=== PATIENT | male | born 1950 | race Caucasian/White ===

== ENCOUNTER 2018-09-04 18:04 | Observation (INO) ==
--- NOTE | 2018-09-04 19:12 | ED ---
HPI General Chief Complaint: Chest Pain Stated Complaint: Chest pain/SOB Time Seen by Provider: 09/04/18 18:40 Source: patient and RN notes reviewed Mode of arrival: ambulatory Limitations: no limitations History of Present Illness HPI narrative: 67-year-old male presents to the emergency department for evaluation of midsternal chest pain that started approximately 2-3 days ago. He states it is constant, but intermittently will get worse. He states it will radiate to his back into his throat. Patient states it is a pressure type of pain. He states that he was in a hospital in [place], [place] for chest pain in May. He states this pain is similar. He states he had a stress test, but does not know the results. 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 He does have history of hypertension, hyperlipidemia, COPD. Patient arrived here approximately 1 week ago from [place]. He denies any history DVT or PE. No leg edema. He states that if he walks, the pain will lessen. However, with sitting still or resting, he thinks the pain and it becomes worse. He states the pain is not worse with exertion. In fact, it actually improves with exertion. Moderate severity. MD complaint: Reports chest pain STEMI Alert: No Onset (ago): day(s) (2-3) Duration: constant Onset: during rest Pain location: Reports substernal Severity: moderate Severity scale (1-10): 5 Quality: Reports other (pressure) Pain radiation: Reports back and neck Relieving factors: movement Exacerbating factors: nothing Related Data Home Medications Medication Instructions Recorded Confirmed amlodipine 5 mg PO DAILY 09/04/18 09/04/18 aspirin [Aspir-81] 81 mg PO DAILY 09/04/18 09/04/18 atorvastatin [Lipitor] 40 mg PO DAILY 09/04/18 09/04/18 Allergies Allergy/AdvReac Type Severity Reaction Status Date / Time No Known Allergies Allergy Unverified 09/04/18 18:47 Review of Systems ROS: all other systems reviewed are negative [facility]LY [facility] Medical History Medical History Alcoholism (Acute) CAD (coronary artery disease) (Acute) History of COPD (Acute) Malignant neoplasm (Acute) PVD (peripheral vascular disease) (Acute) Papilloma (Acute) Squamous cell carcinoma (Acute) Unstable angina (Acute) Social History Social History Substance History: No History of Abuse Second Hand Smoke Exposure: No Smoking Status: Former smoker Tobacco Type: Cigarettes How Often Do You Have a Drink Containing Alcohol: Never Recent Travel in [facility] within the Last 8 Weeks: No Recent Out of Country Travel within the Last 8 Weeks: No Immunization History Tetanus Immunization: Unsure Course Initial Documented Vital Signs Temperature 98.0 F 09/04/18 18:20 Pulse Rate 77 09/04/18 18:20 Respiratory Rate 28 H 09/04/18 18:20 Blood Pressure 149/77 H 09/04/18 18:20 Pulse Oximetry 98 09/04/18 18:20 Last Documented Vital Signs Temperature 97.7 F 09/05/18 04:00 Pulse Rate 60 09/05/18 04:00 Respiratory Rate 16 09/05/18 04:00 Blood Pressure 110/63 09/05/18 04:00 Pulse Oximetry 96 09/05/18 04:00 Medical Decision Making WOLF Attestation WOLF supervised visit: Yes Attestation: I, Dr. Tripathi, have reviewed the advance practice practitioner's documentation and am in agreement, met with the patient face to face, made the diagnosis, and the medical decision making was done by me. *My assessment and Findings: [-] 67-year-old male presented to ER for chest pain evaluation. First set of cardiac enzymes was negative, patient was placed on observation. MDM Narrative Medical decision making narrative: 67-year-old male presents to the emergency department for evaluation of midsternal chest pain that started 2-3 days ago. He states that he was recently in a hospital in [place]. I will attempt to obtain his records. EKG, CBC, CMP, CK, troponin, magnesium, PTT, PT/INR, d- dimer, chest x-ray are ordered and pending. Patient is given aspirin 162 mg p.o., nitro 0.4 mg sublingually x1. EKG shows sinus rhythm, heart rate 60, right bundle branch block. CBC is unremarkable. CMP shows no acute abnormalities. CK is 310. Troponin is less than 0.02. Magnesium is 2.1. PTT is 27.1. PT/INR is 10.4/1.0. D-dimer is 0.27. Chest x-ray shows no acute abnormalities. Upon re-evaluation, patient states pain is much improved. He is unsure if the nitro was what resolved his pain. I discussed the case with my attending physician, Dr. Tripathi, who recommends admission to the [facility]. Medical Screen Exam Complete: Yes Emergency Medical Condition: Yes Differential Diagnosis Differential Diagnosis: ACS vs. chest wall pain vs. anxiety vs. pneumonia vs. PE Medical Records Medical records reviewed: Yes I reviewed the patient's medical records. Lab Data Result diagrams: 09/04/18 18:55 09/04/18 18:55 Lab Results 09/04/18 09/04/18 09/04/18 Range/Units 18:55 18:55 18:55 WBC 8.1 (4.0-11.0) th/mm3 RBC 4.58 (4.50-5.90) mil/mm3 Hgb 16.0 (13.0-17.0) gm/dL Hct 45.6 (39.0-51.0) % MCV 99.5 (80.0-100.0) fL MCH 35.0 H (27.0-34.0) pg MCHC 35.1 (32.0-36.0) % RDW 13.5 (11.6-17.2) % Plt Count 180 (150-450) th/mm3 MPV 9.7 (7.0-11.0) fL Neut % (Auto) 54.8 (16.0-70.0) % Lymph % (Auto) 36.3 (9.0-44.0) % [place] % (Auto) 7.6 (0.0-8.0) % Eos % (Auto) 0.7 (0.0-4.0) % Baso % (Auto) 0.6 (0.0-2.0) % Neut # (Auto) 4.4 (1.8-7.7) th/mm3 Lymph # (Auto) 2.9 (1.0-4.8) th/mm3 [place] # (Auto) 0.6 (0.0-0.9) th/mm3 Eos # (Auto) 0.1 (0.0-0.4) th/mm3 Baso # (Auto) 0.0 (0.0-0.2) th/mm3 WBC Differential . Differential Comment Auto diff final PT (9.8-11.6) sec INR Ratio APTT (24.3-30.1) sec D-Dimer Quant (PE/DVT) Cancelled Sodium 139 (136-145) meq/L Potassium 4.0 (3.5-5.1) meq/L Chloride 108 H (98-107) meq/L Carbon Dioxide 20.8 L (21.0-32.0) meq/L Anion Gap 10 (5-15) meq/L BUN 16 (7-18) mg/dL Creatinine 1.11 (0.60-1.30) mg/dL Estimated GFR 66 L (>89) mL/min Random Glucose 102 (74-106) mg/dL Calcium 9.1 (8.5-10.1) mg/dL Magnesium 2.1 (1.5-2.5) mg/dL Total Bilirubin 0.5 (0.2-1.0) mg/dL AST 24 (15-37) U/L ALT 32 (12-78) U/L Alkaline Phosphatase 65 (45-117) U/L Total Creatine Kinase 310 H (39-308) U/L CK-MB (CK-2) 3.4 (0.5-3.6) ng/mL CK-MB (CK-2) % 1.1 (0.0-4.0) % Troponin I Less than 0.02 L (0.02-0.05) ng/mL Total Protein 7.1 (6.4-8.2) g/dL Albumin 3.6 (3.4-5.0) g/dL Lipase 134 (73-393) U/L Serum Alcohol Less than 3 (0-5) mg/dL 09/04/18 09/04/18 09/05/18 Range/Units 18:55 21:25 01:30 WBC (4.0-11.0) th/mm3 RBC (4.50-5.90) mil/mm3 Hgb (13.0-17.0) gm/dL Hct (39.0-51.0) % MCV (80.0-100.0) fL MCH (27.0-34.0) pg MCHC (32.0-36.0) % RDW (11.6-17.2) % Plt Count (150-450) th/mm3 MPV (7.0-11.0) fL Neut % (Auto) (16.0-70.0) % Lymph % (Auto) (9.0-44.0) % Lanier % (Auto) (0.0-8.0) % Eos % (Auto) (0.0-4.0) % Baso % (Auto) (0.0-2.0) % Neut # (Auto) (1.8-7.7) th/mm3 Lymph # (Auto) (1.0-4.8) th/mm3 [place]ier # (Auto) (0.0-0.9) th/mm3 Eos # (Auto) (0.0-0.4) th/mm3 Baso # (Auto) (0.0-0.2) th/mm3 WBC Differential Differential Comment PT 10.4 (9.8-11.6) sec INR 1.0 Ratio APTT 27.1 (24.3-30.1) sec D-Dimer Quant (PE/DVT) 0.27 Sodium (136-145) meq/L Potassium (3.5-5.1) meq/L Chloride (98-107) meq/L Carbon Dioxide (21.0-32.0) meq/L Anion Gap (5-15) meq/L BUN (7-18) mg/dL Creatinine (0.60-1.30) mg/dL Estimated GFR (>89) mL/min Random Glucose (74-106) mg/dL Calcium (8.5-10.1) mg/dL Magnesium (1.5-2.5) mg/dL Total Bilirubin (0.2-1.0) mg/dL AST (15-37) U/L ALT (12-78) U/L Alkaline Phosphatase (45-117) U/L Total Creatine Kinase 259 (39-308) U/L CK-MB (CK-2) (0.5-3.6) ng/mL CK-MB (CK-2) % (0.0-4.0) % Troponin I Less than 0.02 L Less than 0.02 L (0.02-0.05) ng/mL Total Protein (6.4-8.2) g/dL Albumin (3.4-5.0) g/dL Lipase (73-393) U/L Serum Alcohol (0-5) mg/dL Imaging Data Radiologist's impression: Chest X-Ray 09/04/18 18:48 CONCLUSION: No acute cardiopulmonary disease demonstrated. Discharge Plan Discharge Disposition Patient Disposition: 30 Still Patient Discharge Details Diagnosis: Chest pain Physicians Team ED Provider: Josue Tripathi ED Midlevel Provider: Zayra Whitt Primary Care Provider: UNKNOWN, Attending Provider: Clint Martinez Status ED Status: Left Department Discharge Information Discharge Date/Time: 09/04/18 21:59
[2018-09-04 19:19] LABS: Baso % (Auto) 0.6 % (0.0-2.0); Eos # (Auto) 0.1 th/mm3 (0.0-0.4); Eos % (Auto) 0.7 % (0.0-4.0); Hematocrit 45.6 % (39.0-51.0); Lymph # (Auto) 2.9 th/mm3 (1.0-4.8); Lymph % (Auto) 36.3 % (9.0-44.0); Mean Corpuscular HGB Conc 35.1 % (32.0-36.0); Mean Corpuscular Volume 99.5 fL (80.0-100.0); Mean Platelet Volume 9.7 fL (7.0-11.0); Mono # (Auto) 0.6 th/mm3 (0.0-0.9); Mono % (Auto) 7.6 % (0.0-8.0); Neut # (Auto) 4.4 th/mm3 (1.8-7.7); Neut % (Auto) 54.8 % (16.0-70.0); Platelet Count 180 th/mm3 (150-450); Red Blood Count 4.58 mil/mm3 (4.50-5.90); Red Cell Distribution Width 13.5 % (11.6-17.2); White Blood Count 8.1 th/mm3 (4.0-11.0)
--- NOTE | 2018-09-04 19:25 | XR ---
EXAM DATE: 09/04/2018 6:48 PM EDT AGE/SEX: 67 years / Male INDICATIONS: Chest pain x 2 days. CLINICAL DATA: This is the patient's initial encounter. Patient reports that signs and symptoms have been present for 1 day and indicates a pain score of 4/10. MEDICAL/SURGICAL HISTORY: None. None. COMPARISON: No prior exams available for comparison. FINDINGS: A single AP view of the chest demonstrates the lungs to be symmetrically aerated without evidence of mass, infiltrate or effusion. The cardiomediastinal contours are unremarkable. Osseous structures a re intact. CONCLUSION: No acute cardiopulmonary disease demonstrated. Electronically signed by: Earle Campos MD 09/04/2018 7:24 PM EDT
[2018-09-04 19:32] LABS: Activated Partial Thrombo Time 27.1 sec (24.3-30.1); Albumin 3.6 g/dL (3.4-5.0); Anion Gap 10 meq/L (5-15); Aspartate Aminotransferase 24 U/L (15-37); Blood Urea Nitrogen 16 mg/dL (7-18); Calcium 9.1 mg/dL (8.5-10.1); Carbon Dioxide 20.8 meq/L (21.0-32.0); Chloride 108 meq/L (98-107); Glomerular Filtration Rate 66 mL/min (>89); Glucose,Random 102 mg/dL (74-106); Lipase 134 U/L (73-393); Magnesium 2.1 mg/dL (1.5-2.5); Prothrombin Time 10.4 sec (9.8-11.6); Sodium 139 meq/L (136-145)
[2018-09-04 19:35] LABS: Alanine Aminotransferase 32 U/L (12-78); Alkaline Phosphatase 65 U/L (45-117); Creatine Kinase 310 U/L (39-308); Total Protein 7.1 g/dL (6.4-8.2)
[2018-09-04 19:48] LABS: CKMB Percent 1.1 % (0.0-4.0); Creatine Kinase MB 3.4 ng/mL (0.5-3.6); D-Dimer 0.27 mg/L FEU (0.00-0.50)
[2018-09-04 22:03] LABS: Creatine Kinase 259 U/L (39-308)
[2018-09-05 08:27] VITALS: BP 120/66; PULSE 62; RESP 14; TEMP 97.6; O2SAT 97
[2018-09-05] MEDS ORDERED: amLODIPine 5 MG Tablet PO SCH (09:30)
--- NOTE | 2018-09-05 10:20 | P.HPCA ---
History of Present Illness Primary Care Physician: UNKNOWN Chief Complaint: Chest pain History of Present Illness: This is a 67-year-old male with history of hypertension, hyperlipidemia, COPD, and past tobacco abuse but quit smoking 2 months ago the presents to ED with complaint of chest discomfort patient states he is been having 4-5 months of intermittent chest discomfort. States it happens several times a day. Found improves when he walks. It will last anywhere from a couple minutes to hours. He is short of breath with it. Rarely becomes nauseous and diaphoretic. States he had a nuclear ETT May of this year in [facility] and that was normal. Currently denies chest discomfort. He is here visiting from [place] and will be going back to October 08. History of hypertension, hyperlipidemia, COPD, past tobacco abuse. Denies diabetes and known CAD. His brother had stents in his 40s. His father onset CAD in his 60s. Patient quit smoking about 2 and half months ago but prior that he smoked 1 pack a series daily for 45 years. He has an average 2 beers per day. Denies illicit drug use. - Diagnosis (1) Chest pain (2) Hypertension (3) Hyperlipidemia (4) COPD (chronic obstructive pulmonary disease) Review of Systems General: Patient denies fevers, chills, and recent travel. HEENT: Patient denies headache, sore throat, difficulty swallowing. Cardiovascular: Has the chest discomfort as mentioned above. Denies sensation of heart beating rapidly or irregularly. No syncope. He was diaphoretic. Respiratory: He was short of breath. Denies inspirational chest discomfort. Denies coughing wheezing or hemoptysis. GI: He was nauseous. Patient denies vomiting, diarrhea, abdominal pain, bloody stools. Musculoskeletal: Patient denies joint pain or edema. Denies calf pain or edema. Neurovascular: Patient denies numbness, tingling, weakness in extremities. Denies headache. Endocrine: Denies polyuria and polydipsia. Hematologic: Denies easy bruising. Skin: Denies rash or itching. PMFSH - History History Provided By: Patient - Medical History Medical History: Medical History (Last Updated 09/04/18 @ 18:46 by Wen Pearl) Alcoholism CAD (coronary artery disease) History of COPD Malignant neoplasm PVD (peripheral vascular disease) Papilloma Squamous cell carcinoma Unstable angina - Tobacco History Second Hand Smoke Exposure: No Tobacco Use In Past 30 Days: No Smoking Status: Former smoker Tobacco Type: Cigarettes - Alcohol History How Often Do You Have a Drink Containing Alcohol: Never - Substance Use History Substance History: No History of Abuse - Travel History Recent Travel in the [place] Within the Last 8 Weeks: No Recent Travel Out of the Country Within the Last 8 Weeks: No - Immunization History Tetanus Immunization: Unsure Medications and Allergies Active Medications: Active Medications Amlodipine Besylate (Norvasc) 5 mg PO DAILY [facility] Last Admin: 09/05/18 09:59 Dose: 5 mg Aspirin (Ecotrin) 81 mg PO DAILY [facility] Last Admin: 09/05/18 09:59 Dose: 81 mg Atorvastatin Calcium (Lipitor) 40 mg PO DAILY [facility] Last Admin: 09/05/18 09:59 Dose: 40 mg Nitroglycerin (Nitrostat Sl) 0.4 mg SL Q5M PRN PRN Reason: CHEST PAIN Ondansetron HCl (Zofran Inj) 4 mg IV.PUSH Q6H PRN PRN Reason: NAUSEA Sodium Chloride (Ns Flush) 2 ml IV.FLUSH UNSCH PRN PRN Reason: FLUSH AFTER USING IV ACCESS Sodium Chloride (Ns Flush) 2 ml IV.FLUSH BID [facility] Last Admin: 09/05/18 08:39 Dose: 2 ml Sodium Chloride (Ns Flush) 2 ml IV.FLUSH PRN PRN PRN Reason: FLUSH AFTER USING IV ACCESS Allergies Allergy/AdvReac Type Severity Reaction Status Date / Time No Known Allergies Allergy Unverified 09/04/18 18:47 Home Medications Medication Instructions Recorded Confirmed Type amlodipine 5 mg PO DAILY 09/04/18 09/04/18 History aspirin [Aspir-81] 81 mg PO DAILY 09/04/18 09/04/18 History atorvastatin [Lipitor] 40 mg PO DAILY 09/04/18 09/04/18 History Exam Vital signs: Vital Signs 09/04/18 18:20 09/04/18 18:42 09/04/18 19:00 Temperature 98.0 F Pulse Rate 77 72 68 Respiratory Rate 28 H 16 16 Blood Pressure 149/77 H 169/87 H 110/67 Pulse Oximetry 98 99 97 09/04/18 20:00 09/04/18 21:00 09/04/18 22:10 Temperature 97.5 F L Pulse Rate 68 64 57 L Respiratory Rate 19 20 18 Blood Pressure 122/66 126/64 143/64 H Pulse Oximetry 97 99 09/05/18 00:00 09/05/18 04:00 09/05/18 08:00 Temperature 97.6 F 97.7 F 97.6 F Pulse Rate 66 60 62 Respiratory Rate 16 16 14 Blood Pressure 142/71 H 110/63 120/66 Pulse Oximetry 98 96 97 Intake & Output 09/04/18 09/05/18 09/05/18 18:59 06:59 18:59 Weight 97.522 kg 97.52 kg Other: Weight On Admission 97.522 kg Narrative: GENERAL: This is a well-nourished, well-developed patient, in no apparent distress. Patient speaks in clear complete sentences. Patient is pleasant. HEENT: Head is atraumatic and normocephalic. Neck is supple without lymphadenopathy and trachea is midline. No JVD or carotid bruits. CARDIOVASCULAR: Regular rate and rhythm without murmurs, gallops, or rubs. RESPIRATORY: Clear to auscultation. Breath sounds equal bilaterally. No wheezes , rales, or rhonchi. Chest wall is nontender. No use of accessory muscles. GASTROINTESTINAL: Abdomen is nontender, nondistended. Abdomen soft. No obvious pulsatile mass or bruit. No CVA tenderness. Strong femoral pulses bilaterally. Normal bowel sounds in all quadrants. MUSCULOSKELETAL: Patient is moving upper and lower extremities freely. No calf tenderness or edema, no Homans sign. Strong pulses in upper and lower extremities. NEUROLOGICAL: Patient is alert and oriented. Cranial nerves 2-12 are grossly intact. No focal deficits and speech is clear. SKIN: No rash and turgor is normal. Results 09/04/18 18:55 09/04/18 18:55 Cardiac Enzymes 09/04/18 09/04/18 09/05/18 Range/Units 18:55 21:25 01:30 AST 24 (15-37) U/L CK-MB (CK-2) 3.4 (0.5-3.6) ng/mL Troponin I Less than 0.02 L Less than 0.02 L Less than 0.02 L (0.02-0.05) ng/mL Coagulation 09/04/18 Range/Units 18:55 PT 10.4 (9.8-11.6) sec APTT 27.1 (24.3-30.1) sec CBC 09/04/18 Range/Units 18:55 WBC 8.1 (4.0-11.0) th/mm3 RBC 4.58 (4.50-5.90) mil/mm3 Hgb 16.0 (13.0-17.0) gm/dL Hct 45.6 (39.0-51.0) % Plt Count 180 (150-450) th/mm3 Neut # (Auto) 4.4 (1.8-7.7) th/mm3 Lymph # (Auto) 2.9 (1.0-4.8) th/mm3 [place] # (Auto) 0.6 (0.0-0.9) th/mm3 Eos # (Auto) 0.1 (0.0-0.4) th/mm3 Baso # (Auto) 0.0 (0.0-0.2) th/mm3 Comprehensive Metabolic Panel 09/04/18 Range/Units 18:55 Sodium 139 (136-145) meq/L Potassium 4.0 (3.5-5.1) meq/L Chloride 108 H (98-107) meq/L Carbon Dioxide 20.8 L (21.0-32.0) meq/L BUN 16 (7-18) mg/dL Creatinine 1.11 (0.60-1.30) mg/dL Calcium 9.1 (8.5-10.1) mg/dL AST 24 (15-37) U/L ALT 32 (12-78) U/L Alkaline Phosphatase 65 (45-117) U/L Total Protein 7.1 (6.4-8.2) g/dL Albumin 3.6 (3.4-5.0) g/dL Intake and Output 09/04/18 09/05/18 09/05/18 22:59 06:59 14:59 Other: Weight 97.52 kg Weight On Admission 97.522 kg - Imaging and Cardiology Imaging: Impressions Chest X-Ray 09/04/18 18:48 CONCLUSION: No acute cardiopulmonary disease demonstrated. EKG interpretations - EKG EKG shows: bradycardia (EKGs have been sinus rhythm sinus bradycardia with right bundle branch block. No significant ST segment depressions or elevations. ), sinus rhythm Caprini VTE Risk Assessment Caprini VTE Risk Assessment: Moderate/High Risk (score >= 2) Caprini Risk Assessment Model: Point Value = 1 Point Value = 2 Point Value = 3 Point Value = 5 Age 41-60 Minor surgery BMI > 25 kg/m2 Swollen legs Varicose veins or History of unexplained or recurrent spontaneous Oral contraceptives or hormone replacement Sepsis (< 1 month) Serious lung disease, including pneumonia (< 1 month) Abnormal pulmonary function Acute myocardial infarction Congestive heart failure (< 1 month) History of inflammatory bowel disease Medical patient at bed rest Age 61-74 Arthroscopic surgery Major open surgery (> 45 min) Laparoscopic surgery (> 45 min) Malignancy Confined to bed (> 72 hours) Immobilizing plaster cast Central venous access Age >= 75 History of VTE Family history of VTE Factor V Leiden Prothrombin [id number] Lupus anticoagulant Anticardiolipin antibodies Elevated serum homocysteine Heparin-induced thrombocytopenia Other congenital or acquired thrombophilia Stroke (< 1 month) Elective arthroplasty Hip, pelvis, or leg fracture Acute spinal cord injury (< 1 month) Prophylaxis Regimen: Total Risk Factor Score Risk Level Prophylaxis Regimen 0-1 Low Early ambulation 2 Moderate Order ONE of the following: *Sequential Compression Device (SCD) *Heparin 5000 units SQ BID 3-4 Higher Order ONE of the following medications: *Heparin 5000 units SQ TID *Enoxaparin/Lovenox 40 mg SQ daily (WT < 150 kg, CrCl > 30 mL/min) *Enoxaparin/Lovenox 30 mg SQ daily (WT < 150 kg, CrCl > 10-29 mL/min) *Enoxaparin/Lovenox 30 mg SQ BID (WT < 150 kg, CrCl > 30 mL/min) AND/OR *Sequential Compression Device (SCD) 5 or more Highest Order ONE of the following medications: *Heparin 5000 units SQ TID (Preferred with Epidurals) *Enoxaparin/Lovenox 40 mg SQ daily (WT < 150 kg, CrCl > 30 mL/min) *Enoxaparin/Lovenox 30 mg SQ daily (WT < 150 kg, CrCl > 10-29 mL/min) *Enoxaparin/Lovenox 30 mg SQ BID (WT < 150 kg, CrCl > 30 mL/min) AND *Sequential Compression Device (SCD) Assessment and Plan - Assessment (1) Chest pain Code(s): R07.9 - Chest pain, unspecified Status: Acute (2) Hypertension Code(s): I10 - Essential (primary) hypertension Status: Acute (3) Hyperlipidemia Code(s): E78.5 - Hyperlipidemia, unspecified Status: Acute (4) COPD (chronic obstructive pulmonary disease) Code(s): J44.9 - Chronic obstructive pulmonary disease, unspecified Status: Acute - Plan * Chest pain: Symptoms are atypical. Patient seems to think there may be stress related. He was seen by Dr. Berumen of cardiology and chest pain center. He will undergo a Dung protocol ETT and if nonischemic will be discharged home with instructions to follow-up with his PCP. Return to ED for interval issues. * Hypertension: Continue medication. * Hyperlipidemia: Continue current medication. * COPD: Patient quit smoking about 2 half months ago and he has been encouraged to continue smoking cessation. He will have DuoNeb's as needed. Patient is stable at this time. He is agreeable to this plan. H&P: Quality - VTE Deep Vein Thrombosis/Pulmonary Embolism Present on Admission: No (1) Chest pain Qualifiers: Chest pain type: unspecified Qualified Code(s): R07.9 - Chest pain, unspecified
--- NOTE | 2018-09-05 11:30 | TR ---
Date Performed: 09/05/2018 Time Performed: 10:55:44 DOCTOR: Bentley Berumen DRUG LIST: CLINICAL HISTORY: REASON FOR TEST: REASON FOR ENDING: OBSERVATION: CONCLUSION: ANNA PROTOCOL. NO CP. TEST STOPPED AFTER EXCEEDING GOAL HR SECONDARY TO SOB AND LEG FATIGUE.Maximum QL=466 % Max HR Achieved=93.0% Maximum CU=000/82 COMMENTS: Conclusion: Normal treadmill exercise. No evidence of ischemia.
--- NOTE | 2018-09-05 13:38 | ECG ---
Date Performed: 09/05/2018 Time Performed: 01:18:33 PTAGE: 67 years EKG: SINUS BRADYCARDIA RIGHT BUNDLE BRANCH BLOCK ABNORMAL ECG Since PREVIOUS TRACING , no significant change noted DOCTOR: Bentley Berumen Interpretating Date/Time 09/05/2018 13:37:44
--- NOTE | 2018-09-05 13:43 | ECG ---
Date Performed: 09/04/2018 Time Performed: 21:01:10 PTAGE: 67 years EKG: Sinus rhythm RIGHT BUNDLE BRANCH BLOCK ABNORMAL ECG Since PREVIOUS TRACING , no significant change noted DOCTOR: Bentley Berumen Interpretating Date/Time 09/05/2018 13:41:58
--- NOTE | 2018-09-05 13:44 | ECG ---
Date Performed: 09/04/2018 Time Performed: 18:36:06 PTAGE: 67 years EKG: Sinus rhythm RIGHT BUNDLE BRANCH BLOCK ABNORMAL ECG NO PREVIOUS TRACING DOCTOR: Bentley Berumen Interpretating Date/Time 09/05/2018 13:43:35
== END 2018-09-05 11:44 | disposition home or self-care (01) ==
LOC: NEPC 18:04 → NEDA 18:04 → NEPFCDU 22:05
PROVIDERS: ADMIT Internal Medicine Interventional Cardiology; ATTEND Internal Medicine Interventional Cardiology